=== PATIENT | male | born 2000 | race African-American/Black ===

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

== ENCOUNTER → 2020-01-31 | Outpatient (CLI) | payer MEDICAID ==
[2020-02-01 06:37] LABS: HEPATITS B SURFACE ANTIGEN Negative (Negative)
[2020-02-01 06:49] LABS: HEPATITIS C VIRUS ANTIBODY <0.1 s/co ratio (0.0-0.9)
== END ==
LOC: OD 12:00
PROVIDERS: ATTEND Pediatrics
DX: Z20.2 Contact with and (suspected) exposure to infections with a predominantly sexual mode of transmission (principal)
CPT/HCPCS: 36415; 80074; 86592; 86701